=== PATIENT | male | born 1945 | race Caucasian/White ===

== ENCOUNTER → 2023-04-16 | Outpatient (CLI) | LOC: M SOG 08:18 | PROVIDERS: ATTEND Orthopaedic Surgery | DX: S82.61XA Displaced fracture of lateral malleolus of right fibula, initial encounter for closed fracture (principal); W18.30XA Fall on same level, unspecified, initial encounter; Y92.009 Unspecified place in unspecified non-institutional (private) residence as the place of occurrence of the external cause ==

== ENCOUNTER → 2023-05-16 | Outpatient (CLI) | LOC: M SOG 10:00 | PROVIDERS: ATTEND Orthopaedic Surgery | DX: S82.61XA Displaced fracture of lateral malleolus of right fibula, initial encounter for closed fracture (principal); Y93.9 Activity, unspecified; Y92.9 Unspecified place or not applicable ==

== ENCOUNTER → 2023-11-13 | Outpatient (REF) | payer MEDICARE ==
[2023-11-13 14:02] LABS: HEPATITIS B SURFACE ANTIBODY POSITIVE (POSITIVE)
[2023-11-13 14:33] LABS: HEPATITIS C VIRUS ABY INDEX 0.17 INDEX (<0.8)
[2023-11-13 14:48] LABS: IMMUNOGLOBULIN A 156.2 MG/DL (40-350)
[2023-11-13 21:44] LABS: IMMUNOGLOBULIN G 2716 MG/DL (650-1600)
[2023-11-15 18:09] LABS: CYCLIC CITRULLINATED PEPTIDE > 250 units (0-19); G6PD2 4.42 x10E6/uL (4.14-5.80); HEPATITIS B CORE ANTIBODY IGG Negative (Negative)
== END ==
LOC: M SFHCRHEU 10:22
PROVIDERS: ATTEND Internal Medicine
DX: Z79.899 Other long term (current) drug therapy (principal); M05.79 Rheumatoid arthritis with rheumatoid factor of multiple sites without organ or systems involvement; Z11.59 Encounter for screening for other viral diseases

== ENCOUNTER → 2023-12-17 | Outpatient (CLI) | payer MEDICARE | LOC: M WHC 10:36 | PROVIDERS: ATTEND Internal Medicine | DX: S82.891A Other fracture of right lower leg, initial encounter for closed fracture (principal); W18.30XA Fall on same level, unspecified, initial encounter; Y92.009 Unspecified place in unspecified non-institutional (private) residence as the place of occurrence of the external cause; M81.0 Age-related osteoporosis without current pathological fracture ==

== ENCOUNTER → 2023-12-21 | Outpatient (REF) | payer MEDICARE | LOC: M SFHCRHEU 12:17 | PROVIDERS: ATTEND Internal Medicine | DX: M05.79 Rheumatoid arthritis with rheumatoid factor of multiple sites without organ or systems involvement (principal) ==

== ENCOUNTER 2024-01-25 17:40 | Emergency (ER) | payer MEDICARE ==
[~2024-01-25] VITALS: Ht 177.8 cm; Wt 81.5 kg
[2024-01-25] MEDS ORDERED: SULF500T56 PO (17:50)
[2024-01-25] MEDS ORDERED: CALCTAB89 PO (17:50)
[2024-01-25] MEDS ORDERED: HYDR200T46 PO (17:50)
[2024-01-25] MEDS ORDERED: METO1TAB32 PO (17:50)
[2024-01-25] MEDS ORDERED: ASPI81CH33 PO (17:50)
[2024-01-25] MEDS ORDERED: ATOR40TA75 PO (17:50)
[2024-01-25] MEDS ORDERED: OSTE1TAB2 PO (17:50)
[2024-01-25 20:18] LABS: HEMATOCRIT 24.9 % (42.0-52.0); HEMOGLOBIN 8.5 g/dl (13.5-17.5); MEAN CORPUSCULAR HEMOGLOBIN 30.4 pg (27.0-33.0); MEAN CORPUSCULAR HGB CONC 34.1 g/dl (32.0-36.5); MEAN CORPUSCULAR VOLUME 88.9 fl (80.0-96.0); WHITE BLOOD COUNT 4.2 10^3/uL (4.0-10.0)
[2024-01-25 20:23] LABS: INR 1.31; PROTHROMBIN TIME 15.8 SECONDS (12.5-14.5)
[2024-01-25 20:29] LABS: PLATELET COUNT, AUTOMATED 90 10^3/uL (150-450)
[2024-01-25 20:44] LABS: ALBUMIN 2.5 G/DL (3.2-5.2); ALKALINE PHOSPHATASE 62 U/L (46-116); ALT/SGPT 14 U/L (7.0-40); AST/SGOT 13 U/L (<34); BLOOD UREA NITROGEN 29 MG/DL (9-23); CALCIUM LEVEL 8.6 MG/DL (8.3-10.6); CARBON DIOXIDE LEVEL 25 MMOL/L (20-31); CHLORIDE LEVEL 105 MMOL/L (98-107); CREATININE FOR GFR 1.15 MG/DL (0.70-1.30); GLOMERULAR FILTRATION RATE > 60.0 (>35); GLUCOSE, FASTING 111 MG/DL (74-106); POTASSIUM SERUM 4.5 MMOL/L (3.5-5.1); SODIUM LEVEL 137 MMOL/L (136-145); TOTAL PROTEIN 7.4 G/DL (5.7-8.2)
[2024-01-25] MEDS ORDERED: ISOVUE-370 76% 100ML VIAL As Ordered ONE (20:47)
[2024-01-25 21:15] LABS: CK-MB VALUE MASS 2.2 NG/ML (<3.6)
[2024-01-25 21:16] LABS: CPK CREATINE PHOSPHOKINASE 51 U/L (46-171); MB/CK RELATIVE INDEX 4.31 (< OR =4)
[2024-01-25] MEDS ORDERED: CENT1TAB2 PO (21:58)
[2024-01-25] MEDS ORDERED: HOME MED LIST COMPLETE! XX SCH (22:00)
[2024-01-25 23:16] LABS: PROCALCITONIN 0.25 ng/ml
[2024-01-25 23:18] LABS: BASO % 0.5 % (0.0-1.0); HEMATOCRIT 23.5 % (42.0-52.0); LYMPH # 1.6 10^3/uL (1.5-5.0); LYMPH % 37.2 % (24.0-44.0); MEAN CORPUSCULAR HEMOGLOBIN 30.2 pg (27.0-33.0); MEAN CORPUSCULAR VOLUME 88.7 fl (80.0-96.0); MONO # 0.6 10^3/uL (0.0-0.8); MONO % 12.6 % (2.0-8.0); NEUTROPHILS # 2.1 10^3/uL (1.5-8.5); NEUTROPHILS % 48.6 % (36.0-66.0); PLATELET COUNT, AUTOMATED 105 10^3/uL (150-450); RED BLOOD COUNT 2.65 10^6/uL (4.30-6.10); WHITE BLOOD COUNT 4.4 10^3/uL (4.0-10.0)
[2024-01-25] MEDS: NS 1,000 ML IV ONE (23:56)
[2024-01-26] VITALS (13 sets, daily range): BP systolic 121–152; BP diastolic 65–74; TEMP 97.8–99.7; O2SAT 92–98
[2024-01-26] MEDS: TRANEXAMIC ACID 100 MG/ML 10ML VIAL NEB ONE (01:37)
[2024-01-26] MEDS: ACETAMINOPHEN TAB 650MG DOSE (2X325MG) PO ONE (03:11)
== END 2024-01-26 08:42 | disposition short-term general hospital (02) ==
LOC: M ED 17:40
DX: R04.2 Hemoptysis (principal); J96.90 Respiratory failure, unspecified, unspecified whether with hypoxia or hypercapnia; R91.8 Other nonspecific abnormal finding of lung field; F17.210 Nicotine dependence, cigarettes, uncomplicated; M89.9 Disorder of bone, unspecified; Z79.1 Long term (current) use of non-steroidal anti-inflammatories (NSAID); Z79.899 Other long term (current) drug therapy; Z79.810 Long term (current) use of selective estrogen receptor modulators (SERMs)
CPT/HCPCS: 36415; 36430; 71046; 71275; 73221; 80053; 82550; 82553; 84145; 84484; 85025; 85027; 85049; 85055; 85610; 86850; 86900; 86901; 86920; 87486; 87581; 87633; 87798; 99285; P9016; Q9967

== ENCOUNTER → 2024-01-25 | Outpatient (CLI) | payer MEDICARE ==
[~2024-01-25] MED LIST: ASPI81CH33 PO; ATOR40TA75 PO; CALCTAB89 PO; CENT1TAB2 PO; HYDR200T46 PO; METO1TAB32 PO; OSTE1TAB2 PO; SULF500T56 PO
== END ==
LOC: M RAD 13:19
PROVIDERS: ATTEND Internal Medicine
DX: M89.9 Disorder of bone, unspecified (principal)

== ENCOUNTER 2024-02-15 11:12 | Observation (INO) | payer MEDICARE ==
[~2024-02-15] VITALS: Ht 175.3 cm; Wt 82.3 kg
[2024-02-15] MEDS ORDERED: FLOM0.4C39 PO (11:25)
[2024-02-15] MEDS ORDERED: SULF500T41 (11:25)
[2024-02-15 12:09] LABS: HEMATOCRIT 27.4 % (42.0-52.0); HEMOGLOBIN 9.1 g/dl (13.5-17.5); MEAN CORPUSCULAR HEMOGLOBIN 30.4 pg (27.0-33.0); MEAN CORPUSCULAR HGB CONC 33.2 g/dl (32.0-36.5); MEAN CORPUSCULAR VOLUME 91.6 fl (80.0-96.0); RED BLOOD COUNT 2.99 10^6/uL (4.30-6.10)
[2024-02-15 12:20] LABS: INR 1.37; PROTHROMBIN TIME 16.4 SECONDS (12.5-14.5)
[2024-02-15 12:30] LABS: PLATELET COUNT, AUTOMATED 53 10^3/uL (150-450)
[2024-02-15 12:36] LABS: ANISOCYTOSIS 1+; LYMPHOCYTES 43 % (16-44); METAMYELOCYTES 1 % (0-0); MONOCYTES 5 % (0-5); MYELOCYTES 2 % (0-0); NEUTROPHILS 47 % (28-66)
[2024-02-15 12:37] LABS: PLATELET ESTIMATE DECREASED (NORMAL)
[2024-02-15 12:39] LABS: HELMET CELLS 1+; OVALOCYTES 1+; POIKILOCYTOSIS 1+
[2024-02-15 12:40] LABS: TEAR DROP CELLS 1+
[2024-02-15 12:41] LABS: ALBUMIN 2.4 G/DL (3.2-5.2); ALKALINE PHOSPHATASE 81 U/L (46-116); ALT/SGPT 35 U/L (7.0-40); AST/SGOT 22 U/L (<34); BILIRUBIN,DIRECT 0.4 MG/DL (<0.4); BILIRUBIN,TOTAL 0.9 MG/DL (0.3-1.2); BLOOD UREA NITROGEN 18 MG/DL (9-23); CALCIUM LEVEL 8.3 MG/DL (8.3-10.6); CARBON DIOXIDE LEVEL 27 MMOL/L (20-31); CHLORIDE LEVEL 104 MMOL/L (98-107); CREATININE FOR GFR 0.88 MG/DL (0.70-1.30); GLOMERULAR FILTRATION RATE > 60.0 (>35); GLUCOSE, FASTING 143 MG/DL (74-106); POTASSIUM SERUM 3.7 MMOL/L (3.5-5.1); SODIUM LEVEL 136 MMOL/L (136-145); TOTAL PROTEIN 7.4 G/DL (5.7-8.2)
[2024-02-15] MEDS ORDERED: ISOVUE-370 76% 100ML VIAL As Ordered ONE (12:47)
[2024-02-15] MEDS ORDERED: BENZONATATE 100MG CAPSULE PO PRN (17:10)
[2024-02-15] MEDS ORDERED: guaiFENesin SYRUP 200MG 10ML UDC PO PRN (17:10)
[2024-02-15] MEDS ORDERED: ROBI1LIQ9 PO (17:24)
[2024-02-15] MEDS ORDERED: CLAR10CA3 PO (17:24)
[2024-02-15] MEDS ORDERED: HOME MED LIST COMPLETE! XX SCH (17:25)
[2024-02-15] MEDS ORDERED: TRANEXAMIC ACID 100 MG/ML 10ML VIAL NEB SCH (18:00)
[2024-02-15] MEDS: LORATADINE 10 MG TAB PO SCH (20:27)
[2024-02-15] MEDS: ATORVASTATIN 20 MG TAB PO SCH (20:27)
[2024-02-15 20:28] VITALS: BP 156/80
[2024-02-15] MEDS: METOPROLOL SUCC *XL* 25MG TAB (TopROL *XL*) PO SCH (20:28)
[2024-02-15] MEDS: BENZONATATE 100MG CAPSULE PO PRN (20:28)
[2024-02-15 20:33] VITALS: BP 153/71; TEMP 98.6; O2SAT 97
[2024-02-15] MEDS: HYDROXYCHLOROQUINE 200 MG TAB PO SCH (20:50)
[2024-02-15] MEDS: TRANEXAMIC ACID 100 MG/ML 10ML VIAL NEB SCH (22:25)
[2024-02-15 23:38] VITALS: BP 131/63; TEMP 98.1; O2SAT 93
[2024-02-16 03:42] VITALS: BP 116/62; TEMP 98.1; O2SAT 96
[2024-02-16] MEDS: ACETAMINOPHEN TAB 650MG DOSE (2X325MG) PO PRN (04:04)
[2024-02-16 07:37] VITALS: BP 114/59; TEMP 97.4; O2SAT 95
[2024-02-16 07:40] LABS: HEMATOCRIT 26.4 % (42.0-52.0); HEMOGLOBIN 8.9 g/dl (13.5-17.5); MEAN CORPUSCULAR HGB CONC 33.7 g/dl (32.0-36.5); RED BLOOD COUNT 2.87 10^6/uL (4.30-6.10); WHITE BLOOD COUNT 5.9 10^3/uL (4.0-10.0)
[2024-02-16 07:41] LABS: PLATELET COUNT, AUTOMATED 56 10^3/uL (150-450)
[2024-02-16 08:20] LABS: BLOOD UREA NITROGEN 14 MG/DL (9-23); CALCIUM LEVEL 8.5 MG/DL (8.3-10.6); CARBON DIOXIDE LEVEL 26 MMOL/L (20-31); CHLORIDE LEVEL 104 MMOL/L (98-107); CREATININE FOR GFR 0.86 MG/DL (0.70-1.30); GLOMERULAR FILTRATION RATE > 60.0 (>35); GLUCOSE, FASTING 96 MG/DL (74-106); POTASSIUM SERUM 4.4 MMOL/L (3.5-5.1); SODIUM LEVEL 135 MMOL/L (136-145)
[2024-02-16 08:27] LABS: ATYPICAL LYMPH 12 % (0-5); LYMPHOCYTES 37 % (16-44); MONOCYTES 6 % (0-5); NEUTROPHILS 45 % (28-66); PLATELET ESTIMATE DECREASED (NORMAL); POIKILOCYTOSIS 1+
[2024-02-16 08:28] LABS: OVALOCYTES 1+
[2024-02-16 08:29] LABS: ANISOCYTOSIS 1+; TEAR DROP CELLS 1+
[2024-02-16] MEDS: TAMSULOSIN 0.4 MG CAP PO SCH (08:34)
[2024-02-16] MEDS: MULTIVITAMINS/MINERALS THERAP 1 TAB PO SCH (08:34)
[2024-02-16 11:51] VITALS: BP 121/59; TEMP 98.8; O2SAT 94
[2024-02-16] MEDS ORDERED: MUCI30TA5 PO (13:40)
== END 2024-02-16 14:54 | disposition home or self-care (01) ==
LOC: M ED 11:12 → M ED INP 17:06 → M PCU 20:10
PROVIDERS: ADMIT Internal Medicine; ATTEND Internal Medicine
DX: R04.2 Hemoptysis (principal); C34.91 Malignant neoplasm of unspecified part of right bronchus or lung; M05.9 Rheumatoid arthritis with rheumatoid factor, unspecified; Z85.520 Personal history of malignant carcinoid tumor of kidney; Z90.5 Acquired absence of kidney; I10 Essential (primary) hypertension; N40.1 Benign prostatic hyperplasia with lower urinary tract symptoms; E78.5 Hyperlipidemia, unspecified; I25.10 Atherosclerotic heart disease of native coronary artery without angina pectoris; J30.1 Allergic rhinitis due to pollen; Z86.79 Personal history of other diseases of the circulatory system; D69.6 Thrombocytopenia, unspecified; D64.9 Anemia, unspecified; Z79.899 Other long term (current) drug therapy; Z98.890 Other specified postprocedural states; Z87.891 Personal history of nicotine dependence
CPT/HCPCS: 36415; 71275; 80048; 80076; 85025; 85049; 85055; 85610; 86850; 86900; 86901; 93041; 94640; 94760; 99285; G0378; Q9967

== ENCOUNTER 2024-02-20 03:04 | Emergency (ER) | payer MEDICARE ==
[~2024-02-20] VITALS: Ht 175.3 cm; Wt 79.1 kg
[~2024-02-20 03:04] MED LIST changes: -TRAN650T PO
[2024-02-20 04:34] LABS: HEMOGLOBIN 9.1 g/dl (13.5-17.5); MEAN CORPUSCULAR HEMOGLOBIN 31.6 pg (27.0-33.0); MEAN CORPUSCULAR VOLUME 90.3 fl (80.0-96.0); RED BLOOD COUNT 2.88 10^6/uL (4.30-6.10); WHITE BLOOD COUNT 6.5 10^3/uL (4.0-10.0)
[2024-02-20 04:38] LABS: PLATELET COUNT, AUTOMATED 57 10^3/uL (150-450)
[2024-02-20 04:44] LABS: BLOOD UREA NITROGEN 21 MG/DL (9-23); CALCIUM LEVEL 8.3 MG/DL (8.3-10.6); CARBON DIOXIDE LEVEL 23 MMOL/L (20-31); CHLORIDE LEVEL 102 MMOL/L (98-107); CK-MB VALUE MASS 1.6 NG/ML (<3.6); CPK CREATINE PHOSPHOKINASE 37 U/L (46-171); CREATININE FOR GFR 1.01 MG/DL (0.70-1.30); GLOMERULAR FILTRATION RATE > 60.0 (>35); GLUCOSE, FASTING 114 MG/DL (74-106); MB/CK RELATIVE INDEX 4.32 (< OR =4); SODIUM LEVEL 132 MMOL/L (136-145)
[2024-02-20 05:07] LABS: ATYPICAL LYMPH 3 % (0-5); LYMPHOCYTES 35 % (16-44); MONOCYTES 19 % (0-5); NEUTROPHILS 43 % (28-66)
[2024-02-20 05:16] LABS: ANISOCYTOSIS 1+; PLATELET ESTIMATE MARKED DECREASE (NORMAL); POIKILOCYTOSIS 2+
[2024-02-20 05:17] LABS: BURR CELLS 1+; OVALOCYTES 2+
[2024-02-20 07:39] LABS: CK-MB VALUE MASS 1.4 NG/ML (<3.6)
[2024-02-20 07:41] LABS: MB/CK RELATIVE INDEX 2.8 (< OR =4)
[2024-02-20] MEDS: IPRATROPIUM 0.5MG/ALBUTEROL 2.5MG INH SOL UD 3ML (DUONEB) NEB ONE (08:49)
[2024-02-20 11:30] VITALS: BP 124/64; O2SAT 91
[2024-02-20 11:51] VITALS: TEMP 98.8
== END 2024-02-20 12:16 | disposition home or self-care (01) ==
LOC: M ED 03:04
DX: R04.2 Hemoptysis (principal); C34.90 Malignant neoplasm of unspecified part of unspecified bronchus or lung; I45.10 Unspecified right bundle-branch block; Z87.891 Personal history of nicotine dependence; Z79.810 Long term (current) use of selective estrogen receptor modulators (SERMs); Z79.899 Other long term (current) drug therapy

== ENCOUNTER → 2024-02-20 | Outpatient (CLI) | payer MEDICARE ==
[~2024-02-20] MED LIST changes: +CLAR10CA3 PO; +FLOM0.4C39 PO; +MUCI30TA5 PO; +ROBI1LIQ9 PO; +SULF500T41; +TRAN650T PO
== END ==
LOC: M ONCR 08:00
PROVIDERS: ATTEND General Practice
DX: C34.32 Malignant neoplasm of lower lobe, left bronchus or lung (principal); R04.2 Hemoptysis; E63.9 Nutritional deficiency, unspecified; R63.4 Abnormal weight loss; Z71.2 Person consulting for explanation of examination or test findings; Z79.899 Other long term (current) drug therapy; Z85.528 Personal history of other malignant neoplasm of kidney; Z87.891 Personal history of nicotine dependence; Z90.5 Acquired absence of kidney

== ENCOUNTER 2024-02-21 10:20 | Outpatient (RCR) | payer MEDICARE ==
[2024-02-22] MEDS ORDERED: TRAN650T PO (07:25)
== END 2024-03-07 ==
LOC: M ONCR 10:20
PROVIDERS: ATTEND General Practice
DX: Z51.0 Encounter for antineoplastic radiation therapy (principal); C34.12 Malignant neoplasm of upper lobe, left bronchus or lung; C78.1 Secondary malignant neoplasm of mediastinum